=== PATIENT | male | born 1955 | race Caucasian/White ===

== ENCOUNTER 2020-02-24 17:14 | Emergency (ER) | payer OTHER ==
[2020-02-24 18:18] LABS: #Eosinphils 0.1 thou/uL (0.0-0.7); #Lymphocytes 1.1 thou/uL (1.20-3.40); #Monocytes 0.6 thou/uL (0.11-0.59); #Neutrophils 1.9 thou/uL (1.40-6.50); %Basophils 1.3 % (0.0-1.0); %Eosinophils 2.7 % (0.0-10.0); %Lymphocytes 28.5 % (21.0-51.0); %Monocytes 14.9 % (0.0-10.0); %Neutrophils 52.6 % (42.0-75.0); Hemoglobin 13.9 g/dL (14.0-18.0); Mean Corpuscular HGB CONC 32.5 g/dL (32.0-36.0); Mean Platelet Volume 7.5 fL (7.4-10.4); Platelet Count 99 thou/uL (130-400); RBC Distribution Width 13.7 % (11.5-14.5); Red Blood Cell (RBC) Count 4.23 mill/uL (4.70-6.10); White Blood Cell (WBC) Count 3.7 thou/uL (4.8-10.8)
[2020-02-24 18:26] LABS: Platelet Morphology Comment Appears Decreased; RBC Morphology Normal
[2020-02-24 18:27] LABS: ALT (SGPT) 158 U/L (8-55); AST (SGOT) 155 U/L (5-34); Albumin 3.5 g/dL (3.4-4.8); Alkaline Phosphatase 618 U/L (40-110); Anion Gap 14 mmol/L (10-20); BUN (Urea Nitrogen) 20 mg/dL (8.4-25.7); Bilirubin, Total 0.7 mg/dL (0.2-1.2); CK (CPK) 59 U/L (30-200); Calc. Creatinine Clearance 0 mL/min (70-130); Calcium 8.7 mg/dL (7.8-10.44); Carbon Dioxide 25 mmol/L (23-31); Chloride 102 mmol/L (98-107); Estimated GFR-MDRD Greater than 90; Globulin 4.3 g/dL (2.4-3.5); Glucose 86 mg/dL (80-115); Lipase 85 U/L (8-78); Potassium 3.6 mmol/L (3.5-5.1); Protein, Total 7.8 g/dL (5.8-8.1); Sodium 137 mmol/L (136-145)
[2020-02-24] MEDS ORDERED: Nitroglycerin 2% Ointment 1 INCH/1 GM Packet ONE ×2 (18:30→18:50)
--- NOTE | 2020-02-24 18:42 | RAD ---
ONE VIEW CHEST: 02/24/20 HISTORY: Positive COVID patient. Chest pain. COMPARISON: 02/19/20. FINDINGS: Calcified right paratracheal and hilar lymph nodes are redemonstrated. Normal cardiac silhouette. Pul monary vessels and hilum are normal. Costophrenic angles are clear. Chronic lung parenchymal changes, without consolidation or mass. No pneumothorax or acute osseous abnormalities. IMPRESSION: No significant interval change. No acute cardiopulmonary process. POS: PPP
[2020-02-24] MEDS ORDERED: Ibuprofen 200 MG TAB ONE (20:35)
[2020-02-24] MEDS ORDERED: Ondansetron PF 4 MG/2 ML Vial ONE (21:08)
[2020-02-24] MEDS ORDERED: Enoxaparin Sodium 60 MG/0.6 ML SYRINGE ONE (21:22)
[2020-02-25] MEDS ORDERED: Ondansetron PF 4 MG/2 ML Vial ONE (01:24)
== END 2020-02-25 05:53 | disposition short-term general hospital (02) ==
LOC: ERS 17:14
DX: U07.1 COVID-19 (principal); R07.9 Chest pain, unspecified; K74.60 Unspecified cirrhosis of liver; Z86.73 Personal history of transient ischemic attack (TIA), and cerebral infarction without residual deficits
CPT/HCPCS: 36415; 71045; 80053; 82140; 82550; 83690; 84484; 85025; 93005; 96361; 96372; 96374; 96376; J1650; J2405

== ENCOUNTER 2023-08-17 16:13 | Inpatient (IN) | payer MEDICARE, OTHER, SELFPAY ==
[2023-08-17 17:24] LABS: #Eosinphils 0.1 thou/uL (0.0-0.7); #Monocytes 0.5 thou/uL (0.11-0.59); #Neutrophils 4.1 thou/uL (1.40-6.50); %Basophils 0.7 % (0.0-1.0); %Eosinophils 2.4 % (0.0-10.0); %Lymphocytes 12.5 % (21.0-51.0); %Monocytes 9.1 % (0.0-10.0); %Neutrophils 75.1 % (42.0-75.0); Hematocrit 40.3 % (42.0-52.0); Hemoglobin 13.1 g/dL (14.0-18.0); Mean Corpuscular HGB CONC 32.5 g/dL (32.0-36.0); Mean Corpuscular Hemoglobin 34.3 pg (27.0-31.0); Mean Corpuscular Volume 105.5 fl (78.0-98.0); Mean Platelet Volume 9.5 fL (7.4-10.4); RBC Distribution Width 14.9 % (11.5-14.5); Red Blood Cell (RBC) Count 3.82 mill/uL (4.70-6.10); White Blood Cell (WBC) Count 5.5 10x3/uL (4.8-10.8)
[2023-08-17] MEDS ORDERED: Lidocaine 1% w/Epinephrine 1:100K 20 ML VIAL ONE (17:36)
[2023-08-17 17:41] LABS: Platelet Count 63 10x3/uL (130-400)
[2023-08-17 17:44] LABS: ALT (SGPT) 82 U/L (8-55); AST (SGOT) 99 U/L (5-34); Albumin 3.5 g/dL (3.4-4.8); Alkaline Phosphatase 218 U/L (40-110); Anion Gap 14 mmol/L (10-20); BUN (Urea Nitrogen) 16 mg/dL (8.4-25.7); Bilirubin, Total 0.9 mg/dL (0.2-1.2); Calc. Creatinine Clearance 0 mL/min (70-130); Calcium 8.6 mg/dL (7.8-10.44); Carbon Dioxide 25 mmol/L (23-31); Chloride 107 mmol/L (98-107); Estimated GFR 47; Globulin 2.9 g/dL (2.4-3.5); Glucose 111 mg/dL (80-115); Magnesium 1.6 mg/dL (1.6-2.6); Potassium 3.6 mmol/L (3.5-5.1); Protein, Total 6.4 g/dL (5.8-8.1); Sodium 142 mmol/L (136-145)
[2023-08-17 18:03] LABS: Troponin I Less than 0.010 ng/mL (< 0.028)
[2023-08-17 18:21] LABS: INR-International Normal Ratio 1.1; PTT 23.6 sec (22.9-36.1); Prothrombin Time 14.8 sec (12.0-14.7)
[2023-08-17] MEDS ORDERED: Lacosamide 200 MG in Sodium Chloride 0.9% 50 ML IVPB SCH (18:30)
[2023-08-17] MEDS ORDERED: Boostrix 0.5 ML (Tdap) VIAL (>/=7 yrs of age) ONE (18:54)
[2023-08-17] MEDS ORDERED: Morphine 2 MG/ML VIAL SLOW IVP PRN (18:57)
[2023-08-17] MEDS ORDERED: hydrALAZINE 20 MG/ML VIAL SLOW IVP PRN (18:57)
[2023-08-17] MEDS ORDERED: TETANUS, DIPHTHERIA TOX,ADULT (TDVAX) 0.5 ML VIAL IM ONE (18:57)
[2023-08-17] MEDS ORDERED: Ipratropium/Albuterol 3 ML NEB NEB PRN (18:57)
[2023-08-17] MEDS ORDERED: traMADol HCl 50 MG TAB PO PRN (18:57)
[2023-08-17] MEDS ORDERED: Ondansetron ODT 4 MG TAB PO PRN (18:57)
[2023-08-17] MEDS ORDERED: Famotidine 20 MG TAB PO SCH (21:00)
[2023-08-17] MEDS: Acetaminophen 325 MG TAB PO SCH (23:25)
[2023-08-18] MEDS: Acetaminophen 325 MG TAB PO SCH ×3 (01:39→11:40)
[2023-08-18 02:43] VITALS: BMI 20.2
[2023-08-18 04:53] LABS: #Eosinphils 0.2 thou/uL (0.0-0.7); #Monocytes 0.6 thou/uL (0.11-0.59); #Neutrophils 2.6 thou/uL (1.40-6.50); %Basophils 0.5 % (0.0-1.0); %Eosinophils 3.7 % (0.0-10.0); %Lymphocytes 22.5 % (21.0-51.0); %Monocytes 12.9 % (0.0-10.0); %Neutrophils 60.2 % (42.0-75.0); Hematocrit 39.2 % (42.0-52.0); Hemoglobin 12.9 g/dL (14.0-18.0); Mean Corpuscular HGB CONC 32.9 g/dL (32.0-36.0); Mean Corpuscular Hemoglobin 35.1 pg (27.0-31.0); Mean Corpuscular Volume 106.5 fl (78.0-98.0); Mean Platelet Volume 11.1 fL (7.4-10.4); RBC Distribution Width 15.1 % (11.5-14.5); Red Blood Cell (RBC) Count 3.68 mill/uL (4.70-6.10); White Blood Cell (WBC) Count 4.4 10x3/uL (4.8-10.8)
[2023-08-18 05:04] LABS: Anion Gap 12 mmol/L (10-20); BUN (Urea Nitrogen) 20 mg/dL (8.4-25.7); Calc. Creatinine Clearance 65 mL/min (70-130); Calcium 8.6 mg/dL (7.8-10.44); Carbon Dioxide 24 mmol/L (23-31); Chloride 110 mmol/L (98-107); Estimated GFR 86; Glucose 106 mg/dL (80-115); Sodium 142 mmol/L (136-145)
[2023-08-18 05:09] LABS: Platelet Count 69 10x3/uL (130-400)
[2023-08-18] MEDS ORDERED: Famotidine 20 MG TAB PO SCH (09:30)
[2023-08-18 10:12] LABS: Bacteria/HPF None Seen HPF (None Seen); Bilirubin Negative (Negative); Blood, Urine Negative (Negative); Clarity Clear (Clear); Glucose, Urine (Dipstick) Normal (Negative); Ketone, Urine Negative (Negative); Leukocyte 25 Leu/uL (Negative); Mucous/LPF Rare LPF (<2+); Nitrite Negative (Negative); Protein, Urine (Dipstick) Negative (Neg-Trace); RBC/HPF None Seen HPF (0-3); Specific Gravity, Urine 1.016 (1.002-1.036); Squamous Epithelial None Seen HPF (0-3); Urobilinogen Normal mg/dL (Less than 2)
[2023-08-18] MEDS: Acetaminophen 500 MG TAB PO SCH ×2 (17:43→22:51)
[2023-08-18] MEDS ORDERED: levETIRAcetam 500 MG TAB PO SCH ×2 (17:45→21:00)
[2023-08-18] MEDS ORDERED: Lacosamide 50 mg Tablet PO SCH (17:45)
[2023-08-18] MEDS: Famotidine 20 MG TAB PO SCH (20:50)
[2023-08-19] MEDS: Acetaminophen 500 MG TAB PO SCH ×3 (06:42→17:49)
[2023-08-19] MEDS: Lacosamide 50 mg Tablet PO SCH ×2 (08:12→21:47)
[2023-08-19] MEDS: Tamsulosin HCl 0.4 MG CAP PO SCH (08:12)
[2023-08-19] MEDS: levETIRAcetam 500 MG TAB PO SCH ×2 (08:12→21:47)
[2023-08-19] MEDS: Famotidine 20 MG TAB PO SCH ×2 (08:12→21:48)
[2023-08-19] MEDS ORDERED: FLU VACC QS2023(65UP)/MF59C/PF 60 MCG/0.5 ML SYRINGE IM ONE (09:00)
[2023-08-20] MEDS: Acetaminophen 325 MG TAB PO SCH ×5 (00:22→22:59)
[2023-08-20] MEDS: Acetaminophen/Codeine 30-300mg Tablet PO PRN ×4 (00:25→21:13)
[2023-08-20] MEDS: Tamsulosin HCl 0.4 MG CAP PO SCH (08:29)
[2023-08-20] MEDS: Famotidine 20 MG TAB PO SCH ×2 (08:29→21:13)
[2023-08-20] MEDS: levETIRAcetam 500 MG TAB PO SCH ×2 (08:29→21:13)
[2023-08-20] MEDS: Lacosamide 50 mg Tablet PO SCH ×2 (10:10→21:41)
[2023-08-20] MEDS: diphenhydrAMINE 25 MG CAP PO PRN (22:59)
[2023-08-21] MEDS: Acetaminophen/Codeine 30-300mg Tablet PO PRN ×3 (05:01→11:37)
[2023-08-21] MEDS: diphenhydrAMINE 25 MG CAP PO PRN ×2 (05:01→11:37)
[2023-08-21] MEDS: Acetaminophen 325 MG TAB PO SCH ×4 (05:04→23:50)
[2023-08-21] MEDS: levETIRAcetam 500 MG TAB PO SCH ×2 (08:46→20:33)
[2023-08-21] MEDS: Famotidine 20 MG TAB PO SCH ×2 (08:47→20:36)
[2023-08-21] MEDS: Tamsulosin HCl 0.4 MG CAP PO SCH (08:47)
[2023-08-21] MEDS: Lacosamide 50 mg Tablet PO SCH ×2 (08:47→20:33)
[2023-08-22] MEDS: Acetaminophen 325 MG TAB PO SCH ×4 (05:47→23:23)
[2023-08-22] MEDS: Famotidine 20 MG TAB PO SCH ×2 (09:52→20:33)
[2023-08-22] MEDS: Tamsulosin HCl 0.4 MG CAP PO SCH (09:52)
[2023-08-22] MEDS: Lacosamide 50 mg Tablet PO SCH ×2 (09:52→20:32)
[2023-08-22] MEDS: levETIRAcetam 500 MG TAB PO SCH ×2 (09:53→20:33)
[2023-08-22] MEDS: Acetaminophen/Codeine 30-300mg Tablet PO PRN ×3 (12:26→23:20)
[2023-08-22] MEDS: diphenhydrAMINE 25 MG CAP PO PRN ×3 (12:26→23:20)
[2023-08-23] MEDS: Acetaminophen/Codeine 30-300mg Tablet PO PRN (06:08)
[2023-08-23] MEDS: diphenhydrAMINE 25 MG CAP PO PRN (06:08)
[2023-08-23] MEDS: Acetaminophen 325 MG TAB PO SCH ×3 (06:14→18:04)
[2023-08-23] MEDS: Famotidine 20 MG TAB PO SCH ×2 (08:26→22:33)
[2023-08-23] MEDS: levETIRAcetam 500 MG TAB PO SCH ×2 (08:26→22:34)
[2023-08-23] MEDS: Lacosamide 50 mg Tablet PO SCH ×2 (08:26→22:34)
[2023-08-23] MEDS: Tamsulosin HCl 0.4 MG CAP PO SCH (08:27)
[2023-08-23] MEDS ORDERED: traMADol HCl 50 MG TAB PO SCH (18:00)
[2023-08-23] MEDS: traMADol HCl 50 MG TAB PO SCH (22:34)
[2023-08-24] MEDS: Acetaminophen 325 MG TAB PO SCH ×3 (01:59→18:50)
[2023-08-24] MEDS ORDERED: Spironolactone 100 MG TAB PO SCH (09:30)
[2023-08-24] MEDS ORDERED: Rifaximin 200 MG TAB PO SCH (09:30)
[2023-08-24] MEDS: levETIRAcetam 500 MG TAB PO SCH ×2 (10:33→22:01)
[2023-08-24] MEDS: Tamsulosin HCl 0.4 MG CAP PO SCH (10:37)
[2023-08-24] MEDS: Lacosamide 50 mg Tablet PO SCH ×2 (10:37→22:02)
[2023-08-24] MEDS: Famotidine 20 MG TAB PO SCH ×2 (10:38→22:03)
[2023-08-24] MEDS: Acetaminophen 500 MG TAB PO SCH (19:52)
[2023-08-24] MEDS: traMADol HCl 50 MG TAB PO PRN (19:53)
[2023-08-24] MEDS: Gabapentin 100 MG CAP PO SCH (22:02)
[2023-08-24] MEDS: Rifaximin 200 MG TAB PO SCH (22:02)
[2023-08-25] MEDS: traMADol HCl 50 MG TAB PO PRN ×3 (00:15→20:51)
[2023-08-25] MEDS: Acetaminophen 500 MG TAB PO SCH ×3 (00:15→18:33)
[2023-08-25 07:48] LABS: #Basophils 0.1 thou/uL (0.0-0.2); #Eosinphils 0.3 thou/uL (0.0-0.7); #Monocytes 0.6 thou/uL (0.11-0.59); #Neutrophils 4.3 thou/uL (1.40-6.50); %Basophils 0.8 % (0.0-1.0); %Eosinophils 4.9 % (0.0-10.0); %Lymphocytes 16.8 % (21.0-51.0); %Monocytes 9.9 % (0.0-10.0); %Neutrophils 67.3 % (42.0-75.0); Hematocrit 42.1 % (42.0-52.0); Mean Corpuscular HGB CONC 33.3 g/dL (32.0-36.0); Mean Corpuscular Hemoglobin 34.3 pg (27.0-31.0); Mean Corpuscular Volume 103.2 fl (78.0-98.0); Mean Platelet Volume 10.5 fL (7.4-10.4); RBC Distribution Width 14.6 % (11.5-14.5); Red Blood Cell (RBC) Count 4.08 mill/uL (4.70-6.10); White Blood Cell (WBC) Count 6.4 10x3/uL (4.8-10.8)
[2023-08-25 07:51] LABS: Platelet Count 72 10x3/uL (130-400)
[2023-08-25 08:11] LABS: Anion Gap 9 mmol/L (10-20); BUN (Urea Nitrogen) 17 mg/dL (8.4-25.7); Calc. Creatinine Clearance 92 mL/min (70-130); Carbon Dioxide 26 mmol/L (23-31); Chloride 107 mmol/L (98-107); Estimated GFR 101; Glucose 105 mg/dL (80-115); Potassium 3.9 mmol/L (3.5-5.1); Sodium 138 mmol/L (136-145)
[2023-08-25] MEDS ORDERED: Spironolactone 100 MG TAB PO SCH (09:00)
[2023-08-25] MEDS: Lacosamide 50 mg Tablet PO SCH ×2 (10:27→20:50)
[2023-08-25] MEDS: Famotidine 20 MG TAB PO SCH ×2 (10:28→20:49)
[2023-08-25] MEDS: Gabapentin 100 MG CAP PO SCH ×2 (10:28→20:50)
[2023-08-25] MEDS: levETIRAcetam 500 MG TAB PO SCH ×2 (10:29→20:49)
[2023-08-25] MEDS: Furosemide 40 MG TAB PO SCH (10:30)
[2023-08-25] MEDS: Tamsulosin HCl 0.4 MG CAP PO SCH (10:30)
[2023-08-25] MEDS: Rifaximin 200 MG TAB PO SCH ×2 (10:32→20:50)
[2023-08-26] MEDS: Acetaminophen 500 MG TAB PO SCH ×5 (01:56→20:01)
[2023-08-26] MEDS: Gabapentin 100 MG CAP PO SCH ×2 (10:42→19:59)
[2023-08-26] MEDS: Lacosamide 50 mg Tablet PO SCH ×2 (10:43→20:00)
[2023-08-26] MEDS: levETIRAcetam 500 MG TAB PO SCH ×2 (10:43→19:59)
[2023-08-26] MEDS: Tamsulosin HCl 0.4 MG CAP PO SCH (10:43)
[2023-08-26] MEDS: traMADol HCl 50 MG TAB PO PRN ×2 (10:43→20:02)
[2023-08-26] MEDS: Famotidine 20 MG TAB PO SCH ×2 (10:44→20:00)
[2023-08-26] MEDS: Rifaximin 200 MG TAB PO SCH ×2 (19:19→21:33)
[2023-08-26] MEDS: Furosemide 40 MG TAB PO SCH (19:19)
[2023-08-27] MEDS: Acetaminophen 500 MG TAB PO SCH ×4 (00:09→18:47)
[2023-08-27] MEDS: traMADol HCl 50 MG TAB PO PRN ×2 (05:19→19:49)
[2023-08-27] MEDS: levETIRAcetam 500 MG TAB PO SCH ×2 (09:57→19:49)
[2023-08-27] MEDS: Furosemide 40 MG TAB PO SCH (09:57)
[2023-08-27] MEDS: Tamsulosin HCl 0.4 MG CAP PO SCH (09:57)
[2023-08-27] MEDS: Gabapentin 100 MG CAP PO SCH ×2 (09:57→19:48)
[2023-08-27] MEDS: Lacosamide 50 mg Tablet PO SCH ×2 (09:57→19:49)
[2023-08-27] MEDS: Famotidine 20 MG TAB PO SCH ×2 (09:58→19:48)
[2023-08-27] MEDS: Rifaximin 200 MG TAB PO SCH ×2 (11:15→19:48)
[2023-08-28] MEDS: Acetaminophen 500 MG TAB PO SCH ×5 (01:22→20:46)
[2023-08-28] MEDS: traMADol HCl 50 MG TAB PO PRN (05:57)
[2023-08-28] MEDS: traMADol HCl 50 MG TAB PO SCH (07:32)
[2023-08-28] MEDS: Rifaximin 200 MG TAB PO SCH ×2 (09:25→20:44)
[2023-08-28] MEDS: Tamsulosin HCl 0.4 MG CAP PO SCH (09:25)
[2023-08-28] MEDS: Furosemide 40 MG TAB PO SCH (09:25)
[2023-08-28] MEDS: levETIRAcetam 500 MG TAB PO SCH ×2 (09:26→20:45)
[2023-08-28] MEDS: Gabapentin 100 MG CAP PO SCH ×2 (09:26→20:45)
[2023-08-28] MEDS: Lacosamide 50 mg Tablet PO SCH ×2 (09:26→20:45)
[2023-08-28] MEDS: Famotidine 20 MG TAB PO SCH ×2 (09:27→20:45)
[2023-08-29] MEDS: Acetaminophen 500 MG TAB PO SCH ×4 (01:06→19:54)
[2023-08-29] MEDS: Lacosamide 50 mg Tablet PO SCH ×2 (10:13→19:55)
[2023-08-29] MEDS: Gabapentin 100 MG CAP PO SCH ×2 (10:13→19:54)
[2023-08-29] MEDS: levETIRAcetam 500 MG TAB PO SCH ×2 (10:13→19:55)
[2023-08-29] MEDS: Famotidine 20 MG TAB PO SCH ×2 (10:13→19:54)
[2023-08-29] MEDS: Furosemide 40 MG TAB PO SCH (10:14)
[2023-08-29] MEDS: Tamsulosin HCl 0.4 MG CAP PO SCH (10:14)
[2023-08-29] MEDS: Rifaximin 200 MG TAB PO SCH ×2 (13:40→19:54)
[2023-08-30] MEDS: Acetaminophen 500 MG TAB PO SCH ×4 (01:44→18:57)
[2023-08-30] MEDS: Rifaximin 200 MG TAB PO SCH ×2 (09:00→21:10)
[2023-08-30] MEDS: levETIRAcetam 500 MG TAB PO SCH ×2 (09:00→21:03)
[2023-08-30] MEDS: Gabapentin 100 MG CAP PO SCH ×2 (09:00→21:02)
[2023-08-30] MEDS: Famotidine 20 MG TAB PO SCH ×2 (09:00→21:04)
[2023-08-30] MEDS: Tamsulosin HCl 0.4 MG CAP PO SCH (09:00)
[2023-08-30] MEDS: Furosemide 40 MG TAB PO SCH ×2 (09:00→09:02)
[2023-08-30] MEDS: Lacosamide 50 mg Tablet PO SCH ×2 (09:00→21:02)
[2023-08-30] MEDS: diphenhydrAMINE 25 MG CAP PO PRN (21:03)
[2023-08-30] MEDS: traMADol HCl 50 MG TAB PO PRN (21:03)
[2023-08-31] MEDS: Acetaminophen 500 MG TAB PO SCH ×5 (03:04→20:39)
[2023-08-31] MEDS: levETIRAcetam 500 MG TAB PO SCH ×2 (08:27→20:38)
[2023-08-31] MEDS: Furosemide 40 MG TAB PO SCH (08:27)
[2023-08-31] MEDS: Lacosamide 50 mg Tablet PO SCH ×2 (08:27→20:38)
[2023-08-31] MEDS: Famotidine 20 MG TAB PO SCH ×2 (08:27→20:38)
[2023-08-31] MEDS: Gabapentin 100 MG CAP PO SCH ×2 (08:28→20:38)
[2023-08-31] MEDS: Tamsulosin HCl 0.4 MG CAP PO SCH (08:28)
[2023-08-31] MEDS: Rifaximin 200 MG TAB PO SCH ×2 (08:28→20:41)
[2023-08-31] MEDS: traMADol HCl 50 MG TAB PO PRN (20:47)
[2023-09-01 08:28] VITALS: TEMP 97.7
[2023-09-01] MEDS: Furosemide 40 MG TAB PO SCH (09:27)
[2023-09-01] MEDS: Tamsulosin HCl 0.4 MG CAP PO SCH (09:29)
[2023-09-01] MEDS: Famotidine 20 MG TAB PO SCH ×2 (09:30→09:36)
[2023-09-01] MEDS: levETIRAcetam 500 MG TAB PO SCH (09:30)
[2023-09-01] MEDS: Acetaminophen 500 MG TAB PO SCH (09:31)
[2023-09-01] MEDS: Gabapentin 100 MG CAP PO SCH (09:32)
[2023-09-01] MEDS: Lacosamide 50 mg Tablet PO SCH (09:47)
[2023-09-01] MEDS: Rifaximin 200 MG TAB PO SCH (09:47)
[2023-09-01 11:17] VITALS: BP 96/57
== END 2023-09-01 13:00 | DRG 83 ==
LOC: ERS 16:13 → 2SE 18:49 → OBSVTOIN 08-19 09:48 → SURG B 08-19 19:25 → 2SE 08-19 19:34 → SURG B 08-19 20:13
PROVIDERS: ADMIT Podiatrist Foot & Ankle Surgery; ATTEND Podiatrist Foot & Ankle Surgery
PROC: 0HQ1XZZ Repair Face Skin, External Approach (ICD-10-PCS; principal; 2023-08-19)
DX: S06.5XAA Traumatic subdural hemorrhage with loss of consciousness status unknown, initial encounter (principal); S52.92XA Unspecified fracture of left forearm, initial encounter for closed fracture; S06.6XAA Traumatic subarachnoid hemorrhage with loss of consciousness status unknown, initial encounter; S62.617A Displaced fracture of proximal phalanx of left little finger, initial encounter for closed fracture; S01.01XA Laceration without foreign body of scalp, initial encounter; D69.6 Thrombocytopenia, unspecified; R40.2410 Glasgow coma scale score 13-15, unspecified time; W18.30XA Fall on same level, unspecified, initial encounter; G89.11 Acute pain due to trauma; G40.909 Epilepsy, unspecified, not intractable, without status epilepticus; S01.81XA Laceration without foreign body of other part of head, initial encounter
CPT/HCPCS: 12002; 29125; 36415; 36416; 70450; 72125; 80048; 80053; 81001; 83735; 84484; 85025; 85610; 85730; 86850; 86900; 86901; 90471; 90715; 93005; 93970; 96365; C9254; G0390